=== PATIENT | male | born 1975 | race Caucasian/White ===

== ENCOUNTER 2020-05-30 12:06 | Day surgery (SDC) | payer BC ==
[2020-05-24 14:39] VITALS: BMI 25.8
[~2020-05-30 12:06] MED LIST: BUPIVACAINE HCL/PF 0.25% (2.5MG/ML) 10 ML VIAL IJ ONE
[2020-05-30] MEDS ORDERED: GUM MASTIC/STORAX/MSAL/ALCOHOL 1 DRP DROPSBTL MC ONE (13:32)
[2020-05-30] MEDS ORDERED: fentaNYL CITRATE 250 MCG/5 ML VIAL ONE (13:39)
[2020-05-30] MEDS ORDERED: PROPOFOL 20 ML ONE (13:40)
[2020-05-30] MEDS ORDERED: MIDAZOLAM HCL 2 MG/2 ML SINGLE DOSE VIAL ONE (13:40)
[2020-05-30] MEDS ORDERED: KETOROLAC TROMETHAMINE 30 MG/1 ML VIAL ONE (14:19)
[2020-05-30] MEDS ORDERED: DEXAMETHASONE SOD PHOSPHATE 4 MG/1 ML VIAL ONE (14:19)
[2020-05-30] MEDS ORDERED: ONDANSETRON 4 MG/2 ML VIAL ONE (14:19)
[2020-05-30] MEDS ORDERED: BUPIVACAINE HCL/PF 0.25% (2.5MG/ML) 10 ML VIAL IJ ONE ×2 (14:49)
[2020-05-30 16:21] VITALS: BP 145/80; PULSE 87; TEMP 98.9
--- NOTE | 2020-05-30 19:44 | OP ---
DATE OF OPERATION: 05/30/2020 PREOPERATIVE DIAGNOSIS: Left ulnar neuropathy at elbow. POSTOPERATIVE DIAGNOSIS: Left ulnar neuropathy at elbow. OPERATIVE PROCEDURE: Left ulnar nerve decompression at elbow. SURGEON: Saad Schwartz MD ACTIVITY SPECIALIST: MAEVE An ANESTHESIA: General. COMPLICATIONS: None. ESTIMATED BLOOD LOSS: Minimal. INDICATION FOR PROCEDURE: The patient is a 45-year-old male with the above finding, indicated for operative treatment. Risks, benefits, and alternatives were discussed with the patient at length. Proper informed consent was obtained. DESCRIPTION OF PROCEDURE: After proper identification of the patient and correct operative site, patient was brought to the operating room and placed supine on the table with all prominences well padded. General anesthesia was given. Left upper extremity was prepped and draped in the usual sterile fashion. A well-padded tourniquet was placed over the sterile prep. Esmarch bandage used to exsanguinate the left upper extremity. Tourniquet was inflated to 250 mmHg. Curvilinear incision was made over the posterior medial aspect of the elbow. Incision taken sharply through skin with blunt and sharp dissection to subcutaneous tissues, taking care to protect sensory nerve branches. The ulnar nerve was identified in the proximal aspect of the elbow and dissected from proximal to distal direction to the cubital tunnel and ending with release of the 2 heads of the flexor carpi ulnaris muscle belly. An aberrant muscle was noted coming off the medial epicondyle and attaching to the ulna. This is probably the site of compression of the nerve. This was fully released. A smaller section of the medial intermuscular septum was also removed. This provided complete release of the ulnar nerve at the elbow. Elbow was taken through range of motion. There was no further compression and no subluxation of the nerve. The wound was irrigated and repaired in layers using 4-0 Vicryl and 4-0 Monocryl suture. Steri-Strips and sterile dressings were applied. Patient was reversed from anesthesia and brought to the recovery room in stable condition. Jarod Becerra, the assistant editor, was integral throughout the procedure. The procedure could not have been performed without a skilled operative assistant editor. Carmen RAMOS/[id number]
== END 2020-05-30 16:21 | disposition home or self-care (01) ==
LOC: FASU 12:06
PROVIDERS: ATTEND Orthopaedic Surgery Hand Surgery
PROC: 01N40ZZ Release Ulnar Nerve, Open Approach (ICD-10-PCS; principal; 2020-05-30 14:28)
DX: G56.22 Lesion of ulnar nerve, left upper limb (principal)
CPT/HCPCS: 94760